=== PATIENT | male | born 1990 ===

== ENCOUNTER 2024-03-11 02:22 | Emergency (ER) | payer SELFPAY ==
[2024-03-11 02:23] VITALS: BP 122/77; PULSE 78; RESP 18; TEMP 36.6; O2SAT 97
--- NOTE | 2024-03-11 05:40 | PC.NURSE ---
Pt and friend walked up to triage desk stating it took too fing long here stating they are going to another hospital. Pt left without being seen.
== END 2024-03-11 08:11 | disposition left against medical advice (07) ==
LOC: ANHED 05:48
DX: R10.30 Lower abdominal pain, unspecified (principal)
CPT/HCPCS: 99199